=== PATIENT | female | born 1955 ===

== ENCOUNTER 2016-11-06 15:29 | Emergency (ER) | payer OTHER ==
[2016-11-06 15:29] VITALS: BMI 32.9
--- NOTE | 2016-11-06 16:28 | C.PDOC ---
History Of Present Illness 61 y/o F c PMHx asthma, s/p cholecystectomy, gastritis p/w chest pain x 3 days. Pain has been midsternal, radiating up jaw, associated with shortness of breath. Denies fever, cough, nausea, vomiting. Time Seen by Provider: 11/06/16 16:20 Chief Complaint (Nursing): Chest Pain Past Medical History Vital Signs: Last Vital Signs Temp 98.6 F 11/06/16 15:44 Pulse 76 11/06/16 15:44 Resp 18 11/06/16 15:44 BP 125/84 11/06/16 15:44 Pulse Ox 99 11/06/16 16:48 - Medical History PMH: Anxiety, Arthritis, Asthma, Back Problems, Bronchitis, Colonic Polyps ( UNSURE , DID NOT CLARIFY WITH PROVIDER AT THAT TIME), Depression, Diabetes, Gastritis, Gall Bladder Disease, HTN, Hypercholesterolemia, Malignancy (Rigth breast s/p resection), Osteoporosis Denies: Chronic Kidney Disease Surgical History: Appendectomy, Cholecystectomy, Endoscopy (2013) Family History: States: Unknown Family Hx - Social History Hx Tobacco Use: Yes Hx Alcohol Use: No Hx Substance Use: No - Immunization History Hx Tetanus Toxoid Vaccination: No Hx Influenza Vaccination: No Hx Pneumococcal Vaccination: No Review Of Systems Except As Marked, All Systems Reviewed And Found Negative. Constitutional: Negative for: Fever Cardiovascular: Positive for: Chest Pain Physical Exam - Physical Exam Additional Physical Exam Comments: Constitutional: No acute distress. Head: Normocephalic. Atraumatic. Eyes: PERRL. ENT: Moist mucous membranes. Neck: Supple. Cardiovascular: Regular rate. Radial pulse 2+ bilaterally. Chest: No tenderness. Respiratory: Clear to auscultation bilaterally. GI: Soft. Nontender. Nondistended. Back: No CVA tenderness. Musculoskeletal: No tenderness or swelling of extremities. Skin: No rash. Neurologic: Alert, no focal deficit ED Course And Treatment - Laboratory Results Result Diagrams: 11/06/16 16:55 11/06/16 16:55 O2 Sat by Pulse Oximetry: 99 Medical Decision Making Medical Decision Making: EKG shows NSR, regular rate, no ST/T wave changes, unchanged from previous. CXR no acute disease. Aspirin administered. Patient feels better at reassessment. Labs unremarkable, enzymes negative in this patient with pain for 3 days. She feels comfortable to go home. Will discharge, f/u PMD, instructed to return to the ER for worsening pain, fever, vomiting, dyspnea, or any other problem. Disposition - Disposition Referrals: Shaik Velasquez MD [Staff Provider] - Disposition: HOME/ ROUTINE Disposition Time: 17:53 Condition: STABLE Instructions: Chest Pain (ED) - POA Core Measure Indicators: Chest Pain - Clinical Impression Clinical Impression: Chest pain
[2016-11-06 17:03] LABS: BASO # 0.2 K/uL (0.0-0.2); BASO % 1.4 % (0.0-2.0); EOS # 0.2 K/uL (0.0-0.7); EOS % 1.6 % (0.0-4.0); HEMATOCRIT 39.2 % (34.0-47.0); LYMPH % 35.4 % (20.0-40.0); MEAN CELL VOLUME 90.4 fL (81.0-99.0); MEAN CORPUSCULAR HEMOGLOBIN 28.8 pg (27.0-31.0); MEAN CORPUSCULAR HGB CONC 31.9 g/dL (33.0-37.0); MONO # 0.6 K/uL (0.0-0.8); MONO % 5.1 % (0.0-10.0); RED CELL DISTRIBUTION WIDTH 14.1 % (11.5-14.5); WHITE BLOOD COUNT 11.3 K/uL (4.8-10.8)
[2016-11-06 17:24] LABS: CHLORIDE 101 mmol/L (98-107)
[2016-11-06 17:25] LABS: POTASSIUM 3.7 mmol/L (3.6-5.2); SODIUM 141 mmol/L (132-148)
[2016-11-06 17:26] LABS: GFR AFRICAN-AMERICAN > 60
[2016-11-06 17:27] LABS: ALB/GLOB RATIO 1.1 (1.0-2.1); ALKALINE PHOSPHATASE 78 U/L (38-126); ALT/SGPT 19 U/L (9-52); AST/SGOT 14 U/L (14-36); BILIRUBIN,TOTAL 0.3 mg/dL (0.2-1.3); BLOOD UREA NITROGEN 13 mg/dL (7-17); CALCIUM 8.8 mg/dl (8.6-10.4); CARBON DIOXIDE 30 mmol/L (22-30); GLUCOSE,RANDOM 96 mg/dL (65-105)
[2016-11-06 18:11] VITALS: BP 110/70; PULSE 67; RESP 20; TEMP 98.7; O2SAT 99
--- NOTE | 2016-11-07 08:27 | RAD ---
HISTORY: Chest pain COMPARISON: No prior. TECHNIQUE: Chest PA and lateral FINDINGS: LUNGS: Mild venous congestion. PLEURA: No significant pleural effusion identified. No pneumothorax apparent. CARDIOVASCULAR: Normal. OSSEOUS STRUCTURES: No significant abnormalities. VISUALIZED UPPER ABDOMEN: Normal. OTHER FINDINGS: None. IMPRESSION: Mild venous congestion.
--- NOTE | 2016-11-09 00:32 | CARD ---
APPROVED REPORT EKG Measurement Heart [id number] <Conclusion> Normal sinus rhythm Possible Left atrial enlargement Borderline ECG
== END 2016-11-06 18:10 | disposition home or self-care (01) ==
LOC: C.ER 15:29
DX: R07.89 Other chest pain (principal)

== ENCOUNTER 2017-02-26 14:42 | Emergency (ER) | payer OTHER ==
[2017-02-26 14:43] VITALS: BMI 32.9
[2017-02-26 15:04] VITALS: TEMP 98
[2017-02-26] MEDS ORDERED: Iohexol 240 (50 ml) PO STA (16:58)
[2017-02-26] MEDS ORDERED: Sodium Chloride 0.9% 1,000 ML IV STA (16:58)
[2017-02-26] MEDS ORDERED: Albuterol-Ipratrop 3 mg / 0.5 (3 ml) UD IH STA (17:00)
--- NOTE | 2017-02-26 17:05 | C.PDOC ---
History Of Present Illness <Kady Dinh - Last Filed: 02/26/17 19:11> <Anaya Concepcion - Last Filed: 02/26/17 22:01> 61 y/o female presents to emergency department with complaint of abdominal pain and distention since yesterday. Patient reports associated nausea but denies vomiting, diarrhea, fever, chills. Patient reports history of endoscopy ( negative), cholecystectomy, asthma, hypercholesterolemia, HTN, and diabetes. Patient states pain worsens with movement. (Kady Dinh) History Per: Patient History/Exam Limitations: no limitations Onset/Duration Of Symptoms: Days Current Symptoms Are (Timing): Still Present Location Of Pain/Discomfort: LUQ, LLQ Radiation Of Pain To:: None Quality Of Discomfort: "Pain" Associated Symptoms: Nausea. denies: Fever, Chills, Vomiting, Diarrhea, Urinary Symptoms Recent travel outside of the [place]: No Abnormal Vaginal Bleeding: No <Kady Dinh - Last Filed: 02/26/17 19:11> <Anaya Concepcion - Last Filed: 02/26/17 22:01> Time Seen by Provider: 02/26/17 16:20 Chief Complaint (Nursing): Abdominal Pain Past Medical History Reviewed: Historical Data, Nursing Documentation, Vital Signs - Medical History PMH: Anxiety, Arthritis, Asthma, Back Problems, Bronchitis, Colonic Polyps ( UNSURE , DID NOT CLARIFY WITH PROVIDER AT THAT TIME), Depression, Diabetes, Gastritis, Gall Bladder Disease, HTN, Hypercholesterolemia, Malignancy (Rigth breast s/p resection), Osteoporosis Denies: Chronic Kidney Disease Surgical History: Appendectomy, Cholecystectomy, Endoscopy (2014) Family History: States: Unknown Family Hx - Social History Hx Tobacco Use: Yes Hx Alcohol Use: No Hx Substance Use: No - Immunization History Hx Tetanus Toxoid Vaccination: No Hx Influenza Vaccination: No Hx Pneumococcal Vaccination: No <Kady Dinh - Last Filed: 02/26/17 19:11> Vital Signs: Last Vital Signs Temp 98.0 F 02/26/17 15:01 Pulse 73 02/26/17 20:25 Resp 18 02/26/17 20:25 BP 139/63 02/26/17 20:25 Pulse Ox 98 02/26/17 20:25 Review Of Systems Except As Marked, All Systems Reviewed And Found Negative. Constitutional: Negative for: Fever, Chills Cardiovascular: Negative for: Chest Pain, Palpitations Respiratory: Positive for: Wheezing. Negative for: Cough, Shortness of Breath Gastrointestinal: Positive for: Abdominal Pain. Negative for: Nausea, Vomiting , Diarrhea Skin: Negative for: Rash Neurological: Negative for: Headache, Dizziness <Kady Dinh - Last Filed: 02/26/17 19:11> Physical Exam - Physical Exam Appears: Non-toxic, No Acute Distress Skin: Normal Color, Warm, Dry Head: Atraumatic, Normacephalic Oral Mucosa: Moist Chest: Symmetrical Cardiovascular: Rhythm Regular Respiratory: No Accessory Muscle Use, No Rales, No Rhonchi, Wheezing (expiratory , bilateral, L > R) Gastrointestinal/Abdominal: Soft, No Tenderness, No Guarding, No Rebound Back: Normal Inspection Extremity: Normal ROM, Capillary Refill (< 2 sec. ) Neurological/Psych: Oriented x3, Normal Speech, Normal Cognition <ShakeeljeannineRamandeepe - Last Filed: 02/26/17 19:11> ED Course And Treatment - Laboratory Results Result Diagrams: 02/26/17 17:17 02/26/17 17:17 O2 Sat by Pulse Oximetry: 97 (RA) Pulse Ox Interpretation: Normal - Other Rad CXR X-Ray: Viewed By Me, Read By Radiologist Interpretation: Accession No. : [id number]. Patient Name / ID : ALONZO HEARD / [id number]. Exam Date : 02/26/2017 17:05:49 ( Approved ). Study Comment : Sex / Age : F / 61Y. Creator : Joya Arellano MD. Dictator : Joya Arellano MD. Tannery Worker : Cfd Engineer : Joya Arellano MD. Approver2 : Report Date : 02/26/2017 17:18:26. My Comment : . HISTORY: abd pain. COMPARISON: Chest x-ray performed 11/06/16. TECHNIQUE: Chest, one view. FINDINGS: Examination limited by habitus. LUNGS: Mild pulmonary venous congestion. No focal consolidation. Please note that chest x-ray has limited sensitivity for the detection of pulmonary masses. PLEURA: No significant pleural effusion identified. No definite pneumothorax . CARDIOVASCULAR: Borderline cardiomegaly. OSSEOUS STRUCTURES: No acute osseous abnormality identified. VISUALIZED UPPER ABDOMEN: Unremarkable. OTHER FINDINGS: None. IMPRESSION: Mild pulmonary venous congestion. Borderline cardiomegaly. Progress Note: CT abdomen/pelvis, EKG, CxR, bloodwork, and urinalysis ordered. Treated with duoneb, Protonix, Toradol, Zofran, IVFs. <Kady Dinh - Last Filed: 02/26/17 19:11> - Laboratory Results Result Diagrams: 02/26/17 17:17 02/26/17 17:17 <Anaya Concepcion - Last Filed: 02/26/17 22:01> Medical Decision Making <Kady Dinh - Last Filed: 02/26/17 19:11> <Anaya Concepcion - Last Filed: 02/26/17 22:01> Medical Decision Making: Upon provider reevaluation patient is feeling better, is medically stable, and requires no further treatment in the ED at this time. Patient will be discharged home with Rx for miralax. Counseling was provided and all questions were answered regarding diagnosis and need for follow up withdr gomez. There is agreement to discharge plan. Return if symptoms persist or worsen. (Anaya Concepcion) Disposition - Disposition Disposition Time: 19:11 <Kady Dinh - Last Filed: 02/26/17 19:11> Counseled Patient/Family Regarding: Studies Performed, Diagnosis, Need For Followup, Rx Given <Anaya Concepcion - Last Filed: 02/26/17 22:01> - Disposition Referrals: Shaik Gomez MD [Staff Provider] - Disposition: HOME/ ROUTINE Condition: FAIR Prescriptions: Polyethylene Glycol 3350 [Miralax] 17 gm PO DAILY #270 ml Instructions: Abdominal Pain (ED), Gas and Bloating (ED), Constipation (DC) Forms: [employer] (Stateless) Print Language: SAUDI ARABIAN - Clinical Impression Clinical Impression: Abdominal pain, Constipation - PA / LIPCOAT SPRAYER / Resident Statement MD/DO has reviewed & agrees with the documentation as recorded. - Scribe Statement The provider has reviewed the documentation as recorded by the Scribe <Kady Dinh - Last Filed: 02/26/17 19:11> <Anaya Concepcion - Last Filed: 02/26/17 22:01> - Scribe Statement Carlos Mynoreladia All medical record entries made by the Scribe were at my direction and personally dictated by me. I have reviewed the chart and agree that the record accurately reflects my personal performance of the history, physical exam, medical decision making, and the department course for this patient. I have also personally directed, reviewed, and agree with the discharge instructions and disposition. (Kady Dinh) Physician Patient Turnover Patient Signed Over To: Anaya Concepcion Handoff Comments: CT abdomen/pelvis pending result <Kady Dinh - Last Filed: 02/26/17 19:11>
--- NOTE | 2017-02-26 17:19 | RAD ---
HISTORY: abd pain COMPARISON: Chest x-ray performed 11/06/16. TECHNIQUE: Chest, one view. FINDINGS: Examination limited by habitus. LUNGS: Mild pulmonary venous congestion. No focal consolidation. Please note that chest x-ray has limited sensitivity for the detection of pulmonary masses. PLEURA: No significant pleural effusion identified. No definite pneumothorax . CARDIOVASCULAR: Borderline cardiomegaly. OSSEOUS STRUCTURES: No acute osseous abnormality identified. VISUALIZED UPPER ABDOMEN: Unremarkable. OTHER FINDINGS: None. IMPRESSION: Mild pulmonary venous congestion. Borderline cardiomegaly.
[2017-02-26] MEDS ORDERED: Sodium Chloride 0.9% 1,000 ML ONE (17:20)
[2017-02-26] MEDS ORDERED: Iohexol 240 (50 ml) ONE (17:21)
[2017-02-26 17:22] LABS: BASO # 0.1 K/uL (0.0-0.2); BASO % 0.5 % (0.0-2.0); EOS # 0.2 K/uL (0.0-0.7); HEMATOCRIT 41.2 % (34.0-47.0); LYMPH # 3.9 K/uL (1.0-4.3); LYMPH % 36.9 % (20.0-40.0); MEAN CELL VOLUME 90.4 fL (81.0-99.0); MEAN CORPUSCULAR HEMOGLOBIN 29.5 pg (27.0-31.0); MEAN CORPUSCULAR HGB CONC 32.6 g/dL (33.0-37.0); MEAN PLATELET VOLUME 9.8 fL (7.2-11.7); MONO # 0.8 K/uL (0.0-0.8); MONO % 7.4 % (0.0-10.0); RED CELL DISTRIBUTION WIDTH 13.8 % (11.5-14.5); WHITE BLOOD COUNT 10.5 K/uL (4.8-10.8)
[2017-02-26] MEDS ORDERED: Albuterol-Ipratrop 3 mg / 0.5 (3 ml) UD ONE (17:23)
[2017-02-26 17:32] LABS: CHLORIDE 101 mmol/L (98-107); SODIUM 136 mmol/L (132-148)
[2017-02-26 17:33] LABS: RBC URINE 6 /hpf (0-3); URINE BACTERIA OCC (<OCC); URINE BILIRUBIN NEGATIVE (NEGATIVE); URINE BLOOD 1+ (NEGATIVE); URINE COLOR Yellow (YELLOW); URINE GLUCOSE (UA) NORMAL (Normal); URINE KETONE NEGATIVE (NEGATIVE); URINE LEUKOCYTE ESTERASE TRACE Leu/uL (Negative); URINE PROTEIN NEGATIVE (NEGATIVE); URINE UROBILINOGEN NORMAL mg/dL (0.2-1.0); WBC URINE 2 /hpf (0-5)
[2017-02-26 17:35] LABS: ALB/GLOB RATIO 1.1 (1.0-2.1); ALKALINE PHOSPHATASE 70 U/L (38-126); ALT/SGPT 25 U/L (9-52); AST/SGOT 16 U/L (14-36); BILIRUBIN,TOTAL 0.5 mg/dL (0.2-1.3); BLOOD UREA NITROGEN 14 mg/dL (7-17); CARBON DIOXIDE 26 mmol/L (22-30); GFR AFRICAN-AMERICAN > 60; GLUCOSE,RANDOM 83 mg/dL (65-105); TOTAL PROTEIN 7.5 g/dL (6.3-8.3)
[2017-02-26 17:36] LABS: CALCIUM 9.1 mg/dl (8.6-10.4)
[2017-02-26] MEDS ORDERED: Iodixanol 320 MG/ML 100 ML BOTTLE IV ONE (19:07)
--- NOTE | 2017-02-26 21:39 | CT ---
EXAM: CT Abdomen and Pelvis With Intravenous Contrast EXAM DATE/TIME: Exam ordered 02/26/2017 4:59 PM CLINICAL HISTORY: 61 years old, female; Pain; Abdominal pain; Generalized; Additional info: Abd pain TECHNIQUE: Axial computed tomography images of the abdomen and pelvis with intravenous contrast. All CT scans at this facility use one or more dose reduction techniques, viz.: automated exposure control; ma/kV adjustment per patient size (including targeted exams where dose is matched to indication; i.e. head); or iterative reconstruction technique. Coronal and sagittal reformatted images were created and reviewed. CONTRAST: 100 mL of VISIPAQUE administered intravenously. COMPARISON: CT - CHEST W/O CONTRAST 05/11/2015 6:33:10 PM FINDINGS: Lower thorax: No acute findings. ABDOMEN: Liver: Unremarkable. No mass. Gallbladder and bile ducts: Surgical clips are noted in the gallbladder fossa. The gallbladder is absent. ductal dilation. Pancreas: Unremarkable. No mass. No ductal dilation. Spleen: There is a 9 mm accessory spleen inferior to the splenic hilum. No Adrenals: Unremarkable. No mass. Kidneys and ureters: There is a 6 mm low density lesion in the lower pole the right kidney not fully characterized due to its small size Stomach and bowel: There is thickening noted of the terminal ileum. This could be related to relative underdistention. No definite perienteric inflammatory changes are seen. No obstruction. No mucosal thickening. Appendix: Not seen as a separate structure. PELVIS: Bladder: Unremarkable. No mass. Reproductive: Unremarkable as visualized. ABDOMEN and PELVIS: Intraperitoneal space: Unremarkable. No free air. No significant fluid collection. Bones/joints: No acute fracture. No dislocation. Soft tissues: Unremarkable. Vasculature: Unremarkable. No abdominal aortic aneurysm. Lymph nodes: Unremarkable. No enlarged lymph nodes. IMPRESSION: 1. Minimal thickening noted of the terminal ileum which could be related to under distention although an early enteritis is not excluded. No perienteric inflammatory changes. The appendix is not seen as a separate structure.
[2017-02-26 22:12] VITALS: BP 162/89; PULSE 55; RESP 20; O2SAT 97
--- NOTE | 2017-02-28 22:44 | CARD ---
APPROVED REPORT EKG Measurement Heart [id number] MA [id number] [id number] <Conclusion> Normal sinus rhythm Nonspecific ST abnormality Abnormal ECG
== END 2017-02-26 22:12 | disposition home or self-care (01) ==
LOC: C.ER 14:42
DX: K59.00 Constipation, unspecified (principal); R10.12 Left upper quadrant pain
CPT/HCPCS: 71010; 74177; 80053; 81001; 82948; 83690; 84484; 85025; 93005; 94640; 96361; 96374; 96375; 99285; C9113; J1885; J2405; J7040; Q9966; Q9967

== ENCOUNTER 2017-04-19 08:14 | Observation (INO) | payer OTHER ==
[2017-04-19 08:14] VITALS: BMI 32.9
[2017-04-19 08:55] LABS: BASO # 0.1 K/uL (0.0-0.2); BASO % 1.2 % (0.0-2.0); EOS # 0.2 K/uL (0.0-0.7); EOS % 1.9 % (0.0-4.0); HEMATOCRIT 42.2 % (34.0-47.0); LYMPH # 3.7 K/uL (1.0-4.3); LYMPH % 30.5 % (20.0-40.0); MEAN CORPUSCULAR HEMOGLOBIN 30.2 pg (27.0-31.0); MEAN CORPUSCULAR HGB CONC 33.5 g/dL (33.0-37.0); MONO # 0.9 K/uL (0.0-0.8); MONO % 7.3 % (0.0-10.0); NRBC % 0.1 % (0.0-2.0); WHITE BLOOD COUNT 12.2 K/uL (4.8-10.8)
[2017-04-19 09:02] LABS: INR 1.1
[2017-04-19 09:15] LABS: ALKALINE PHOSPHATASE 76 U/L (38-126); ALT/SGPT 30 U/L (9-52); AST/SGOT 20 U/L (14-36); BILIRUBIN,TOTAL 0.4 mg/dL (0.2-1.3); BLOOD UREA NITROGEN 9 mg/dL (7-17); CALCIUM 8.6 mg/dl (8.6-10.4); CARBON DIOXIDE 30 mmol/L (22-30); CHLORIDE 102 mmol/L (98-107); GFR AFRICAN-AMERICAN > 60; GLUCOSE,RANDOM 95 mg/dL (65-105); POTASSIUM 3.6 mmol/L (3.6-5.2); SODIUM 135 mmol/L (132-148); TOTAL PROTEIN 8.6 g/dL (6.3-8.3)
[2017-04-19 09:17] LABS: ALB/GLOB RATIO 0.8 (1.0-2.1)
--- NOTE | 2017-04-19 09:32 | RAD ---
HISTORY: SOB, COUGH, PLEURITIC CHEST PAIN COMPARISON: 02/26/2017 TECHNIQUE: Chest PA and lateral FINDINGS: LUNGS: No active pulmonary disease. PLEURA: No significant pleural effusion identified. No pneumothorax apparent. CARDIOVASCULAR: Normal. OSSEOUS STRUCTURES: No significant abnormalities. VISUALIZED UPPER ABDOMEN: Normal. OTHER FINDINGS: None. IMPRESSION: No active disease.
[2017-04-19] MEDS ORDERED: Albuterol-Ipratrop 3 mg / 0.5 (3 ml) UD INH STA (09:54)
[2017-04-19] MEDS ORDERED: Albuterol-Ipratrop 3 mg / 0.5 (3 ml) UD ONE (10:32)
--- NOTE | 2017-04-19 10:38 | C.PDOC ---
History Of Present Illness 61 year old female, whose PMHx includes Asthma, presents to the ED after being sent from endoscopy suite for evaluation of substernal and right-sided chest pain which began prior to ED arrival. Patient was scheduled to undergo endoscopy by Dr. Mendiola when she began complaining of symptoms and was sent to ED for further evaluation. Patient notes her pain is sharp and radiates towards her back. She states symptoms are worse with deep breathing, cough and movement. Patient also complains of cough productive of green sputum, shortness of breath, and wheezing for 2 days. Patient denies fever, chills, abdominal pain , nausea, vomiting. Time Seen by Provider: 04/19/17 08:21 Chief Complaint (Nursing): Chest Pain History Per: Patient History/Exam Limitations: no limitations Current Symptoms Are (Timing): Still Present Quality: "Pain" Exacerbating Factors: Movement, Deep Breathing, Other (cough) Additional History Per: Patient Past Medical History Reviewed: Historical Data, Nursing Documentation, Vital Signs Vital Signs: Last Vital Signs Temp 97.6 F 04/19/17 08:15 Pulse 58 L 04/19/17 09:37 Resp 19 04/19/17 09:37 BP 156/74 H 04/19/17 09:37 Pulse Ox 95 04/19/17 13:38 - Medical History PMH: Anxiety, Arthritis, Asthma, Back Problems, Bronchitis, Colonic Polyps ( UNSURE , DID NOT CLARIFY WITH PROVIDER AT THAT TIME), Depression, Diabetes, Gastritis, Gall Bladder Disease, HTN, Hypercholesterolemia, Malignancy (Rigth breast s/p resection), Osteoporosis Denies: Chronic Kidney Disease Surgical History: Appendectomy, Cholecystectomy, Endoscopy (2013) Family History: States: Unknown Family Hx - Social History Hx Tobacco Use: Yes Hx Alcohol Use: No Hx Substance Use: No - Immunization History Hx Tetanus Toxoid Vaccination: No Hx Influenza Vaccination: No Hx Pneumococcal Vaccination: No Review Of Systems Constitutional: Negative for: Fever, Chills Respiratory: Positive for: Cough, Shortness of Breath, Sputum, Wheezing Gastrointestinal: Negative for: Nausea, Vomiting, Abdominal Pain Physical Exam - Physical Exam Appears: Non-toxic, No Acute Distress Skin: Normal Color, Warm, Dry, No Rash Eye(s): bilateral: Normal Inspection Oral Mucosa: Moist Neck: Supple Chest: Symmetrical, No Deformity, Tenderness (right-sided and substernal ) Cardiovascular: Rhythm Regular, No Murmur Respiratory: Normal Breath Sounds, No Rales, No Rhonchi, No Wheezing, Other ( speaking in full sentences ) Gastrointestinal/Abdominal: Soft, No Tenderness, No Guarding, No Rebound Extremity: Normal ROM, No Calf Tenderness, Capillary Refill (less than 2 seconds ), No Swelling Neurological/Psych: Oriented x3, Normal Speech, Normal Cognition Gait: Steady ED Course And Treatment - Laboratory Results Result Diagrams: 04/19/17 08:45 04/19/17 08:45 ECG: Interpreted By Me, Viewed By Me ECG Rhythm: Sinus Rhythm Interpretation Of ECG: Normal Sinus Rhythm at rate 67bpm. Normal axis. No acute ST/T wave changes. Rate From EC O2 Sat by Pulse Oximetry: 95 (on RA) Pulse Ox Interpretation: Normal - Other Rad cxr X-Ray: Viewed By Me, Read By Radiologist Interpretation: Accession No. : [id number]. Patient Name / ID : ALONZO Black / [id number]. Exam Date : 04/19/2017 08:38:46 ( Approved ). Study Comment : Sex / Age : F / 61Y. Creator : Yoel Giron MD. Dictator : Yoel Giron MD. Telecommunications Network Engineer : Connie Scratcher : Yoel Giron MD. Approver2 : Report Date : 04/19/2017 09:30:53. My Comment : . HISTORY: SOB, COUGH, PLEURITIC CHEST PAIN. COMPARISON: 02/26/2017. TECHNIQUE: Chest PA and lateral. FINDINGS: LUNGS: No active pulmonary disease. PLEURA: No significant pleural effusion identified. No pneumothorax apparent. CARDIOVASCULAR: Normal. OSSEOUS STRUCTURES: No significant abnormalities. VISUALIZED UPPER ABDOMEN: Normal. OTHER FINDINGS: None. IMPRESSION: No active disease. Progress Note: Blood work (including briana x2), EKG, CXR ordered and reviewed. Patient given duoneb treatment. 11:35am- Discussed patient with Riccardo Mendiola, he will ask Dr. Boothe to see patient on consult, if ok from cardio standpoint - will still do endoscopy today. Disposition - Disposition - Scribe Statement The provider has reviewed the documentation as recorded by the Scribe (Denita Escobedo) Provider Attestation: All medical record entries made by the Scribe were at my direction and personally dictated by me. I have reviewed the chart and agree that the record accurately reflects my personal performance of the history, physical exam, medical decision making, and the department course for this patient. I have also personally directed, reviewed, and agree with the discharge instructions and disposition.
--- NOTE | 2017-04-19 13:03 | CP.PCM.CON ---
History of Present Illness - History of Present Illness History of Present Illness: Asked by Dr. Escobedo for a GI consultation on this patient. 61 year old female with history of DM, HTN, hyperlipidemia who initially presented to hospital for outpatient elective colonoscopy. Prior to beginning procedure, patient started complaining of severe substernal chest pain radiating to back. She also endorses progressive dyspnea on exertion for the past one week with symptoms present after walking 2-3 blocks. She denies abdominal pain, nausea, vomiting, fever/chills, weight loss, rectal bleeding, or change in bowel habits. Patient was sent to ER for further evaluation and workup of chest pain. Social history: non-smoker, no ETOH use Family history: reviewed, no history of colon cancer Review of Systems - Review of Systems Review of Systems: - All other comprehensive 12 point review of systems performed, negative - Cardiovascular Cardiovascular: Chest Pain, Dyspnea on Exertion - Respiratory Respiratory: absent: Cough, Dyspnea, Hemoptysis, Dyspnea on Exertion, Wheezing, Snoring, Stridor, Pain on Inspiration, Chest Congestion, Excessive Mucous Production, Change in Mucous Color, Pain with Coughing, Other - Gastrointestinal Gastrointestinal: absent: Abdominal Pain, Belching, Bloating, Change in Bowel Habits, Change in Stool Character, Coffee Ground Emesis, Constipation, Cramping , Diarrhea, Dyspepsia, Dysphagia, Early Satiety, Excessive Flatus, Fecal Incontinence, Heartburn, Hematemesis, Hematochezia, Loose Stools, Melena, Nausea , Odynophagia, Temesmus, Vomiting, Other - Musculoskeletal Musculoskeletal: absent: Abnormal Gait, Arthralgias, Atrophy, Back Pain, Deformity, Joint Swelling, Limited Range of Motion, Loss of Height, Muscle Cramps, Muscle Weakness, Myalgias, Neck Pain, Numbness, Radiating Pain into Limb , Stiffness, Tingling, Other - Neurological Neurological: absent: Abnormal Gait, Abnormal Hearing, Abnormal Movements, Abnormal Speech, Behavioral Changes, Burning Sensations, Confusion, Convulsions , Disequilibrium, Dizziness, Numbness, Focal Weakness, Frequent Falls, Headaches , Lack of Coordination, Loss of Vision, Memory Loss, Paresthesias, Radicular Pain, Restless Legs, Sensory Deficit, Syncope, Tingling, Tremor, Vertigo, Weakness, Other Visual Disturbances, Other Past Patient History - Past Medical History & Family History Past Medical History?: Yes - Past Social History Smoking Status: Heavy Smoker > 10 Cigarettes Daily - CARDIAC Hx Hypercholesterolemia: Yes Hx Hypertension: Yes - PULMONARY Hx Asthma: Yes Hx Bronchitis: Yes - NEUROLOGICAL Hx Neurological Disorder: No - HEENT Hx HEENT Problems: No - RENAL Hx Chronic Kidney Disease: No - ENDOCRINE/METABOLIC Hx Endocrine Disorders: Yes Hx Diabetes Mellitus Type 2: Yes - HEMATOLOGICAL/ONCOLOGICAL Hx Blood Disorders: No - INTEGUMENTARY Hx Dermatological Problems: No - MUSCULOSKELETAL/RHEUMATOLOGICAL Hx Arthritis: Yes Hx Osteoporosis: Yes - GASTROINTESTINAL Hx Gall Bladder Disease: Yes Hx Gastritis: Yes - GENITOURINARY/GYNECOLOGICAL Hx Genitourinary Disorders: No Other/Comment: HX: CYSTOCELE. HX: CERVICAL POLYP - PSYCHIATRIC Hx Anxiety: Yes Hx Depression: Yes Hx Substance Use: No - SURGICAL HISTORY Hx Appendectomy: Yes Hx Cholecystectomy: Yes - ANESTHESIA Hx Anesthesia: Yes Hx Anesthesia Reactions: No Hx Malignant Hyperthermia: No Meds Allergies/Adverse Reactions: Allergies Allergy/AdvReac Type Severity Reaction Status Date / Time acetaminophen [From Percocet] Allergy ANAPHYLAXIS Verified 04/19/17 07:53 codeine Allergy ANAPHYLAXIS Verified 04/19/17 07:53 oxycodone HCl [From Percocet] Allergy ANAPHYLAXIS Verified 04/19/17 07:53 Penicillins Allergy ANAPHYLAXIS Verified 04/19/17 07:53 Physical Exam - Constitutional Appears: Non-toxic, No Acute Distress - Head Exam Head Exam: NORMAL INSPECTION - Eye Exam Eye Exam: EOMI, Normal appearance - ENT Exam ENT Exam: Mucous Membranes Moist - Respiratory Exam Respiratory Exam: Clear to Auscultation Bilateral - Cardiovascular Exam Cardiovascular Exam: REGULAR RHYTHM, +S1, +S2 - GI/Abdominal Exam GI & Abdominal Exam: Normal Bowel Sounds, Soft Additional comments: non tender to palpation in four quadrants no palpable hepato/splenomegaly - Extremities Exam Extremities exam: Positive for: normal inspection - Neurological Exam Neurological exam: Alert, CN II-XII Intact, Oriented x3, Reflexes Normal - Psychiatric Exam Psychiatric exam: Normal Affect, Normal Mood - Skin Skin Exam: Dry, Intact, Normal Color, Warm Results - Vital Signs Recent Vital Signs: Last Vital Signs Temp 97.6 F 04/19/17 08:15 Pulse 58 L 04/19/17 09:37 Resp 19 04/19/17 09:37 BP 156/74 H 04/19/17 09:37 Pulse Ox 95 04/19/17 12:48 - Labs Result Diagrams: 04/19/17 08:45 11/30/17 08:45 Labs: Laboratory Results - last 24 hr 04/19/17 04/19/17 04/19/17 08:45 08:45 08:45 WBC 12.2 H RBC 4.69 Hgb 14.1 Hct 42.2 MCV 90.0 MCH 30.2 MCHC 33.5 RDW 14.0 Plt Count 336 MPV 9.0 Neut % (Auto) 59.1 Lymph % (Auto) 30.5 [place] % (Auto) 7.3 Eos % (Auto) 1.9 Baso % (Auto) 1.2 Neut # 7.2 H Lymph # 3.7 Jess[place] # 0.9 H Eos # 0.2 Baso # 0.1 PT 12.7 H INR 1.1 APTT 27 Sodium 135 Potassium 3.6 Chloride 102 Carbon Dioxide 30 Anion Gap 7 L BUN 9 Creatinine 0.6 L Est GFR ( Amer) > 60 Est GFR (Non-Af Amer) > 60 Random Glucose 95 Calcium 8.6 Total Bilirubin 0.4 AST 20 ALT 30 Alkaline Phosphatase 76 Total Creatine Kinase 46 CK-MB (Mass) 0.35 Troponin I < 0.0120 NT-Pro-B Natriuret Pep 63.5 Total Protein 8.6 H Albumin 3.8 Globulin 4.8 H Albumin/Globulin Ratio 0.8 L Lipase 28 04/19/17 11:24 WBC RBC Hgb Hct MCV MCH MCHC RDW Plt Count MPV Neut % (Auto) Lymph % (Auto) Jess[place] % (Auto) Eos % (Auto) Baso % (Auto) Neut # Lymph # Jess[place] # Eos # Baso # PT INR APTT Sodium Potassium Chloride Carbon Dioxide Anion Gap BUN Creatinine Est GFR ( Amer) Est GFR (Non-Af Amer) Random Glucose Calcium Total Bilirubin AST ALT Alkaline Phosphatase Total Creatine Kinase 51 CK-MB (Mass) 0.23 Troponin I < 0.0120 NT-Pro-B Natriuret Pep Total Protein Albumin Globulin Albumin/Globulin Ratio Lipase Assessment & Plan - Assessment and Plan (Free Text) Assessment: DM HTN Hyperlipidemia Chest pain, dyspnea on exertion - symptoms present prior to beginning elective outpatient colonoscopy, patient sent to ER Plan: - Diabetic diet as tolerated - Consult placed for cardiology, Dr. Boothe for further evaluation and workup of chest pain, dyspnea on exertion. Plan for patient to undergo cardiac stress testing prior to performing elective colonoscopy. Further management pending results of stress testing. - Will reschedule patient procedure following completion of cardiac workup - Please reconsult as necessary, thank you.
[2017-04-19] MEDS ORDERED: Home Med 1 UNIT (Atorvastatin [Lipitor] 20 MG) PO SCH (18:00)
[2017-04-19] MEDS: POLYETHYLENE GLYCOL 3350 17 GM/Dose PACKET PO SCH (18:26)
--- NOTE | 2017-04-19 18:58 | CP.PCM.HP ---
History of Present Illness - History of Present Illness History of Present Illness: A 61-year-old female with PMHasthma, anxiety, arthritis, bronchitis, colonic polyp, depression, DM, gastritis, HTN, hypercholesterolemia and right breast malignancy [resection done] and osteoporosis presents for evaluation of chest pain. C/ chest pain for the last few hours. Acute in onset, progressive, pinpricking to squeezing type, intensity of 6/10, substernal and on the right upper chest, nonradiating, aggravated with deep breathing and coughing and no relieving factors. Patient was to undergo endoscopy by Dr. Maury Pugh in the symptoms started. C/Ocough for the last 2 days. Insidious in onset, cough productive sputum of greenish color. C/Oshortness of breath for 2 days. Insidious in onset, progressive, associated with cough, NYHA grade 2, relieved by rest. No C/O - fever, chills, abdominal pain, nausea, vomiting, orthopnea, PND, palpitations. Present on Admission - Present on Admission Any Indicators Present on Admission: No Past Patient History - Past Medical History & Family History Past Medical History?: Yes - Past Social History Smoking Status: Light Smoker < 10 Cigarettes Daily - CARDIAC Hx Hypercholesterolemia: Yes Hx Hypertension: Yes - PULMONARY Hx Asthma: Yes Hx Bronchitis: Yes - NEUROLOGICAL Hx Neurological Disorder: No - HEENT Hx HEENT Problems: No - RENAL Hx Chronic Kidney Disease: No - ENDOCRINE/METABOLIC Hx Endocrine Disorders: Yes Hx Diabetes Mellitus Type 2: Yes - HEMATOLOGICAL/ONCOLOGICAL Hx Blood Disorders: No - INTEGUMENTARY Hx Dermatological Problems: No - MUSCULOSKELETAL/RHEUMATOLOGICAL Hx Falls: No - GASTROINTESTINAL Hx Gall Bladder Disease: Yes Hx Gastritis: Yes - GENITOURINARY/GYNECOLOGICAL Hx Genitourinary Disorders: No Other/Comment: HX: CYSTOCELE. HX: CERVICAL POLYP - PSYCHIATRIC Hx Anxiety: Yes Hx Depression: Yes Hx Substance Use: No - SURGICAL HISTORY Hx Appendectomy: Yes Hx Cholecystectomy: Yes - ANESTHESIA Hx Anesthesia: Yes Hx Anesthesia Reactions: No Hx Malignant Hyperthermia: No Has any member of the family had a problem w/ anesthesia?: No Meds Allergies/Adverse Reactions: Allergies Allergy/AdvReac Type Severity Reaction Status Date / Time acetaminophen [From Percocet] Allergy ANAPHYLAXIS Verified 04/19/17 07:53 codeine Allergy ANAPHYLAXIS Verified 04/19/17 07:53 oxycodone HCl [From Percocet] Allergy ANAPHYLAXIS Verified 04/19/17 07:53 Penicillins Allergy ANAPHYLAXIS Verified 04/19/17 07:53 Physical Exam - Constitutional Appears: Well - Head Exam Head Exam: ATRAUMATIC, NORMAL INSPECTION, NORMOCEPHALIC - Eye Exam Eye Exam: EOMI, Normal appearance, PERRL Pupil Exam: NORMAL ACCOMODATION, PERRL - ENT Exam ENT Exam: Mucous Membranes Moist, Normal Exam - Neck Exam Neck exam: Positive for: Normal Inspection - Respiratory Exam Respiratory Exam: Decreased Breath Sounds - Cardiovascular Exam Cardiovascular Exam: REGULAR RHYTHM, +S1, +S2 - GI/Abdominal Exam GI & Abdominal Exam: Diminished Bowel Sounds, Soft - Rectal Exam Rectal Exam: Deferred Results - Vital Signs Recent Vital Signs: Last Vital Signs Temp 97.5 F L 04/19/17 16:40 Pulse 70 04/19/17 16:40 Resp 20 04/19/17 16:40 BP 161/78 H 04/19/17 16:40 Pulse Ox 94 L 04/19/17 16:40 - Labs Result Diagrams: 04/19/17 08:45 04/19/17 08:45 Labs: Laboratory Results - last 24 hr 04/19/17 04/19/17 04/19/17 08:45 08:45 08:45 WBC 12.2 H RBC 4.69 Hgb 14.1 Hct 42.2 MCV 90.0 MCH 30.2 MCHC 33.5 RDW 14.0 Plt Count 336 MPV 9.0 Neut % (Auto) 59.1 Lymph % (Auto) 30.5 Stephens % (Auto) 7.3 Eos % (Auto) 1.9 Baso % (Auto) 1.2 Neut # 7.2 H Lymph # 3.7 Stephens # 0.9 H Eos # 0.2 Baso # 0.1 PT 12.7 H INR 1.1 APTT 27 Sodium 135 Potassium 3.6 Chloride 102 Carbon Dioxide 30 Anion Gap 7 L BUN 9 Creatinine 0.6 L Est GFR ( Amer) > 60 Est GFR (Non-Af Amer) > 60 POC Glucose (mg/dL) Random Glucose 95 Calcium 8.6 Total Bilirubin 0.4 AST 20 ALT 30 Alkaline Phosphatase 76 Total Creatine Kinase 46 CK-MB (Mass) 0.35 Troponin I < 0.0120 NT-Pro-B Natriuret Pep 63.5 Total Protein 8.6 H Albumin 3.8 Globulin 4.8 H Albumin/Globulin Ratio 0.8 L Lipase 28 04/19/17 04/19/17 11:24 16:53 WBC RBC Hgb Hct MCV MCH MCHC RDW Plt Count MPV Neut % (Auto) Lymph % (Auto) Stephens % (Auto) Eos % (Auto) Baso % (Auto) Neut # Lymph # Stephens # Eos # Baso # PT INR APTT Sodium Potassium Chloride Carbon Dioxide Anion Gap BUN Creatinine Est GFR ( Amer) Est GFR (Non-Af Amer) POC Glucose (mg/dL) 158 H Random Glucose Calcium Total Bilirubin AST ALT Alkaline Phosphatase Total Creatine Kinase 51 CK-MB (Mass) 0.23 Troponin I < 0.0120 NT-Pro-B Natriuret Pep Total Protein Albumin Globulin Albumin/Globulin Ratio Lipase
[2017-04-19] MEDS: Pantoprazole 40 mg EC Tab PO SCH (19:31)
[2017-04-19] MEDS: Albuterol 0.042% Inhal Sol (1.25 mg/3 mL) UD INH SCH (19:53)
[2017-04-19] MEDS: (Novolog) Insulin Aspart, Recombinant 100 u/ml 10 ml vial SC SCH (22:03)
[2017-04-20] MEDS: Albuterol 0.042% Inhal Sol (1.25 mg/3 mL) UD INH SCH ×3 (01:17→13:05)
[2017-04-20 01:33] VITALS: O2SAT 97
[2017-04-20] MEDS: (Novolog) Insulin Aspart, Recombinant 100 u/ml 10 ml vial SC SCH ×2 (07:47→11:36)
[2017-04-20 08:25] VITALS: BP 156/88; PULSE 60; RESP 18; TEMP 98.5
[2017-04-20] MEDS: Pantoprazole 40 mg EC Tab PO SCH (09:05)
[2017-04-20] MEDS: POLYETHYLENE GLYCOL 3350 17 GM/Dose PACKET PO SCH (09:06)
[2017-04-20] MEDS ORDERED: Enoxaparin 40 mg Syringe SC SCH (10:00)
--- NOTE | 2017-04-20 15:08 | CP.PCM.PN ---
Subjective - Date & Time of Evaluation Date of Evaluation: 04/20/17 Time of Evaluation: 15:05 - Subjective Subjective: DISCUSSED PLAN WITH DR. ELI VIA TELEPHONE. HE STIL LHAS YET TO SEE THE PT BUT WAS NOTIFIED ABOUT CONSULT. PT NEEDS INPATIENT CARDIAC W/U PER DR. ELI. ORDERS PLACED FOR MD: ECHO (STAT), LIPIDS, YANIRA (THIRD ONE ORDERED; FIRST 2 NEGATIVE). PT UPSET AND WANTS TO BE DC TODAY PER PRIMARY RN VICENTE. POSS AMA CONSIDERING THAT PT IS UPSET ABOUT ADMISSION. LIKELY D/C IN AM IF ALL TESTS NEG AND IF CLEARED BY DR. ELI. NO FURTHER ORDERS. Objective - Vital Signs/Intake and Output Vital Signs (last 24 hours): Temp Pulse Resp BP Pulse Ox 98.5 F 60 18 156/88 H 97 04/20/17 08:24 04/20/17 08:24 04/20/17 08:24 04/20/17 08:24 04/20/17 08:24 Intake and Output: 04/20/17 04/20/17 06:59 18:59 Intake Total 400 Balance 400 - Medications Medications: Current Medications Albuterol Sulfate (Albuterol 0.042% Inhal Shilpa (1.25mg/3ml) Ud) 1.25 mg INH RQ6 [facility] Last Admin: 04/20/17 13:05 Dose: 1.25 mg Aspirin (Aspirin) 325 mg PO DAILY [facility] Last Admin: 04/20/17 09:05 Dose: 325 mg Enoxaparin Sodium (Lovenox) 40 mg SC DAILY [facility] Last Admin: 04/20/17 09:10 Dose: 40 mg Ergocalciferol (Drisdol 50,000 Intl Units Cap) 1 cap PO QWK [facility] Fenofibrate (Tricor) 145 mg PO HS [facility] Last Admin: 04/19/17 22:06 Dose: 145 mg Insulin Aspart (Novolog) 0 unit SC ACHS [facility] PRN Reason: Protocol Last Admin: 04/20/17 11:36 Dose: Not Given Losartan Potassium (Cozaar) 25 mg PO DAILY [facility] Last Admin: 04/20/17 09:11 Dose: 25 mg Metformin HCl (Glucophage Xr) 500 mg PO DAILY [facility] Last Admin: 04/20/17 10:09 Dose: 500 mg Pantoprazole Sodium (Protonix Ec Tab) 40 mg PO DAILY [facility] Last Admin: 04/20/17 09:05 Dose: 40 mg Polyethylene Glycol (Miralax) 17 gm PO DAILY [facility] Last Admin: 04/20/17 09:06 Dose: 17 gm Rosuvastatin Calcium (Crestor) 10 mg PO HS [facility] Last Admin: 04/19/17 22:06 Dose: 10 mg - Labs Labs: 04/19/17 08:45 04/19/17 08:45 PT 12.7 SECONDS (9.7-12.2) H 04/19/17 08:45 INR 1.1 04/19/17 08:45 APTT 27 SECONDS (21-34) 04/19/17 08:45
--- NOTE | 2017-04-21 10:31 | CARD ---
APPROVED REPORT EKG Measurement Heart [id number] <Conclusion> Normal sinus rhythm Possible Left atrial enlargement Borderline ECG
--- NOTE | 2017-04-22 23:33 | CP.PCM.CON ---
History of Present Illness - History of Present Illness History of Present Illness: 61 F hx of HTN, DM 2 experienced chest pain this am prior to Colonoscopy. Patient sent to ER for further evaluation Due to risk factors and chest pain recommend cardiac eval prior to the procedure Stress test in am Past Patient History - Past Medical History & Family History Past Medical History?: Yes - Past Social History Smoking Status: Light Smoker < 10 Cigarettes Daily - CARDIAC Hx Hypercholesterolemia: Yes Hx Hypertension: Yes - PULMONARY Hx Asthma: Yes Hx Bronchitis: Yes - NEUROLOGICAL Hx Neurological Disorder: No - HEENT Hx HEENT Problems: No - RENAL Hx Chronic Kidney Disease: No - ENDOCRINE/METABOLIC Hx Endocrine Disorders: Yes Hx Diabetes Mellitus Type 2: Yes - HEMATOLOGICAL/ONCOLOGICAL Hx Blood Disorders: No - INTEGUMENTARY Hx Dermatological Problems: No - MUSCULOSKELETAL/RHEUMATOLOGICAL Hx Falls: No - GASTROINTESTINAL Hx Gall Bladder Disease: Yes Hx Gastritis: Yes - GENITOURINARY/GYNECOLOGICAL Hx Genitourinary Disorders: No Other/Comment: HX: CYSTOCELE. HX: CERVICAL POLYP - PSYCHIATRIC Hx Anxiety: Yes Hx Depression: Yes Hx Substance Use: No - SURGICAL HISTORY Hx Appendectomy: Yes Hx Cholecystectomy: Yes - ANESTHESIA Hx Anesthesia: Yes Hx Anesthesia Reactions: No Hx Malignant Hyperthermia: No Has any member of the family had a problem w/ anesthesia?: No Meds Allergies/Adverse Reactions: Allergies Allergy/AdvReac Type Severity Reaction Status Date / Time acetaminophen [From Percocet] Allergy ANAPHYLAXIS Verified 04/19/17 07:53 codeine Allergy ANAPHYLAXIS Verified 04/19/17 07:53 oxycodone HCl [From Percocet] Allergy ANAPHYLAXIS Verified 04/19/17 07:53 Penicillins Allergy ANAPHYLAXIS Verified 04/19/17 07:53 Results - Vital Signs Recent Vital Signs: Last Vital Signs Temp 98.5 F 04/20/17 08:24 Pulse 60 04/20/17 08:24 Resp 18 04/20/17 08:24 BP 156/88 H 04/20/17 08:24 Pulse Ox 97 04/20/17 08:24 - Labs Result Diagrams: 04/19/17 08:45 04/19/17 08:45
[2017-04-27] MEDS ORDERED: Ergocalciferol 50,000 Intl Units Cap PO SCH (10:00)
== END 2017-04-20 16:28 | disposition left against medical advice (07) ==
LOC: C.ER 08:14 → C.9E 11:59 → C.6T 15:56
PROVIDERS: ADMIT Internal Medicine Nephrology; ATTEND Internal Medicine Nephrology
DX: R07.9 Chest pain, unspecified (principal); R06.00 Dyspnea, unspecified; E11.9 Type 2 diabetes mellitus without complications; E78.00 Pure hypercholesterolemia, unspecified; E78.5 Hyperlipidemia, unspecified; F32.9 Major depressive disorder, single episode, unspecified; I10 Essential (primary) hypertension; J40 Bronchitis, not specified as acute or chronic; F41.9 Anxiety disorder, unspecified; J45.909 Unspecified asthma, uncomplicated; Z87.891 Personal history of nicotine dependence
CPT/HCPCS: 71020; 80053; 82550; 82553; 82948; 83690; 83880; 84484; 85025; 85610; 85730; 93005; 94640; 94760; 96372; 99285; G0378; J1650

== ENCOUNTER 2017-06-13 07:18 | Day surgery (SDC) | payer OTHER ==
--- NOTE | 2017-06-13 09:47 | CP.SDSHP ---
Same Day Surgery H & P - History Proposed Procedure: colonoscopy Pre-Op Diagnosis: abdominal pain, LLQ - Previous Medical/Surgical History Cardiac: Hypertension Endocrine/Metabolic: Diabetes - Allergies Allergies: Allergies acetaminophen [From Percocet] Allergy (Verified 06/13/17 07:47) ANAPHYLAXIS codeine Allergy (Verified 06/13/17 07:47) ANAPHYLAXIS oxycodone HCl [From Percocet] Allergy (Verified 06/13/17 07:47) ANAPHYLAXIS Penicillins Allergy (Verified 06/13/17 07:47) ANAPHYLAXIS - Physical Exam General Appearance: NAD Vital Signs: Vital Signs 06/13/17 07:15 Temperature 96.7 F L Pulse Rate 59 L Respiratory 19 Rate Blood Pressure 136/73 O2 Sat by Pulse 99 Oximetry Mental Status: Alert & Oriented x3 Neuro: WNL Heart: WNL Lungs: WNL GI: WNL - {Optional Preform as Required} Abdomen: WNL - Impression Pt. Evaluated Today:Candidate for Anesthesia & Procedure: Yes - Date & Time Date: 06/13/17 Time: 09:47 Short Stay Discharge - Short Stay Discharge Admitting Diagnosis/Reason for Visit: LEFT LOWER QUADRANT PAIN Disposition: HOME/ ROUTINE
[2017-06-13] MEDS ORDERED: Propofol 10 mg/ml Inj (20 ML) ONE (09:49)
[2017-06-13] MEDS ORDERED: Albuterol HFA 90 mcg/actuation (8 g) ONE (09:49)
[2017-06-13] MEDS ORDERED: Midazolam 2 MG/2 ML VIAL ONE (09:49)
[2017-06-13] MEDS ORDERED: Lactated Ringer's 1,000 ML IV ONE (09:50)
[2017-06-13 11:18] VITALS: TEMP 97.1; O2SAT 100
[2017-06-13 12:15] VITALS: BP 135/70; PULSE 58; RESP 18
== END 2017-06-13 12:02 | disposition home or self-care (01) ==
LOC: C.ENDO 07:18
PROVIDERS: ATTEND Internal Medicine Gastroenterology
DX: R10.32 Left lower quadrant pain (principal); E11.9 Type 2 diabetes mellitus without complications; I10 Essential (primary) hypertension; Z88.0 Allergy status to penicillin; Z88.5 Allergy status to narcotic agent; Z88.6 Allergy status to analgesic agent; Z87.892 Personal history of anaphylaxis; D12.0 Benign neoplasm of cecum; D12.4 Benign neoplasm of descending colon; D12.5 Benign neoplasm of sigmoid colon; D12.3 Benign neoplasm of transverse colon; K64.1 Second degree hemorrhoids
CPT/HCPCS: 45380; 45385; 82948; 88305; J2250; J2704; J7120

== ENCOUNTER 2018-07-29 11:18 | Outpatient (CLI) | payer OTHER | END 2018-07-29 11:19 | disposition home or self-care (01) | LOC: C.RADH 11:18 ==